=== PATIENT | male | born 2000 | race American Indian/Alaskan Native ===

== ENCOUNTER 2021-11-18 02:17 | Emergency (ER) | payer SELFPAY | END 2021-11-18 04:50 | disposition left against medical advice (07) | LOC: ED 02:17 | DX: R42 Dizziness and giddiness (principal); Z53.21 Procedure and treatment not carried out due to patient leaving prior to being seen by health care provider ==

== ENCOUNTER 2022-02-07 11:06 | Emergency (ER) | payer OTHER ==
[2022-02-07 11:19] VITALS: BP 130/90
[2022-02-07] MEDS ORDERED: MECLIZINE 25 MG TAB PO ONE (13:23)
--- NOTE | 2022-02-07 14:57 | Emergency Department Report ---
ED General Adult HPI - General Chief complaint: Medical Clearance Stated complaint: DIZZY/MED REFILL PUI?: No Time Seen by Provider: 02/07/22 13:15 Source: patient, EMS Mode of arrival: Stretcher Limitations: No Limitations - History of Present Illness Initial comments: 21 YO COMES TO ER WITH A/C VERTIGO HE HAS BEEN SEEN AT [facility] AND GIVEN MECLIZINE HE IS OUT OF HIS MEDS AND COMES FOR REFILL NO SYMPTOMS AT THIS TIME HE CANT GET INTO SEE PCP UNTIL SEPT HR DOCUMENTED AT 120 BUT 80 ON PROVIDER EXAM -: Gradual, month(s) Severity scale (0 -10): 0 Associated Symptoms: denies other symptoms Treatments Prior to Arrival: none - Related Data Previous Rx's Medication Instructions Recorded Last Taken Type Meclizine [Antivert] 25 mg PO TID PRN #30 02/07/22 Unknown Rx Allergies Allergy/AdvReac Type Severity Reaction Status Date / Time No Known Allergies Allergy Unverified 02/07/22 11:24 ED Review of Systems ROS: Stated complaint: DIZZY/MED REFILL Other details as noted in HPI Comment: All other systems reviewed and negative ED Past Medical Hx - Past Medical History Previous Medical History?: Yes Additional medical history: VERTIGO - Surgical History Past Surgical History?: No - Family History Family history: no significant - Social History Smoking Status: Never Smoker Substance Use Type: None - Medications Home Medications: Home Medications Medication Instructions Recorded Confirmed Last Taken Type Meclizine [Antivert] 25 mg PO TID PRN #30 02/07/22 Unknown Rx ED Physical Exam - General Limitations: No Limitations General appearance: alert, in no apparent distress - Head Head exam: Present: atraumatic, normocephalic - Eye Eye exam: Present: normal appearance - ENT ENT exam: Present: mucous membranes moist - Neck Neck exam: Present: normal inspection - Respiratory Respiratory exam: Present: normal lung sounds bilaterally. Absent: respiratory distress - Cardiovascular Cardiovascular Exam: Present: regular rate, normal rhythm. Absent: systolic murmur, diastolic murmur, rubs, gallop - GI/Abdominal GI/Abdominal exam: Present: soft, normal bowel sounds - Rectal Rectal exam: Present: deferred - Extremities Exam Extremities exam: Present: normal inspection - Back Exam Back exam: Present: normal inspection - Neurological Exam Neurological exam: Present: alert, oriented X3 - Psychiatric Psychiatric exam: Present: normal affect, normal mood - Skin Skin exam: Present: warm, dry, intact, normal color. Absent: rash ED Course Vital Signs 02/07/22 11:06 Temperature 97.1 F L Pulse Rate 124 H Respiratory 18 Rate Blood Pressure 130/90 [Left] O2 Sat by Pulse 100 Oximetry ED Medical Decision Making - Medical Decision Making HR 80 PT LEFT WO MEDS/EKG BECAUSE HE WAS WAITING TOO LONG. Vital Signs 02/07/22 11:06 Temperature 97.1 F L Pulse Rate 124 H Respiratory 18 Rate Blood Pressure 130/90 [Left] O2 Sat by Pulse 100 Oximetry DC WITH DC PLAN OF CARE INCLUDING DIET, MEDS, ACTIVITY AND FOLLOW UP. Critical care attestation.: If time is entered above; I have spent that time in minutes in the direct care of this critically ill patient, excluding procedure time. ED Disposition Clinical Impression: Vertigo Disposition: 01 HOME / SELF CARE / HOMELESS Is pt being admited?: No Does the pt Need Aspirin: No Condition: Stable Instructions: Dizziness, [id number] Additional Instructions: FOLLOW UP WITH PCP WE DISCUSSED Prescriptions: Meclizine [Antivert] 25 mg PO TID PRN #30 PRN Reason: Vertigo Referrals: SAM JACKSON MD [Staff Physician] - 3-5 Days Forms: Work/School Release Form(ED) Time of Disposition: 14:56
--- NOTE | 2022-02-10 13:23 | Electrocardiograph Report ---
[facility] Test Date: 2022-02-08 Test Time: 10:07:12 Pat Name: ALVIN WRIGHT Department: Room: Gender: M Special Education Teaching Assistant: AF : 2000 Requested By: SCAR GARCIA Order Number: [id number] Reading MD: Mo Seo Measurements Intervals [place] Rate: 71 P: 70 KS: 184 QRS: 78 QRSD: 151 T: -48 QT: 469 QTc: 509 Interpretive Statements Sinus rhythm Probable left atrial enlargement Right bundle branch block Abnrm T, consider ischemia, anterolateral lds No previous ECG available for comparison Electronically Signed On 02-10-2022 13:23:06 EDT by Mo Seo
== END 2022-02-08 09:49 | disposition home or self-care (01) ==
LOC: ED 11:06
DX: R42 Dizziness and giddiness (principal)
CPT/HCPCS: 93005; 99283

== ENCOUNTER 2022-03-05 16:25 | Emergency (ER) | payer OTHER ==
[2022-03-05 16:30] VITALS: BP 150/90
--- NOTE | 2022-03-05 17:23 | XRay Report ---
RIGHT ANKLE 3 VIEW(S) INDICATION / CLINICAL INFORMATION: pain, injury COMPARISON: None available. FINDINGS: BONES / JOINT(S): No acute fracture or subluxation. No significant arthritis. SOFT TISSUES: No significant abnormality. ADDITIONAL FINDINGS: None. IMPRESSION: 1. No acute findings. Signer Name: Mceca Luna MD Signed: 03/05/2022 5:19 PM Workstation Name: [employer] for iPhone and Android
[2022-03-05] MEDS ORDERED: HYDROcodone/ACETAMINOPHEN 5-325 MG TAB PO ONE (18:19)
[2022-03-05] MEDS ORDERED: IBUPROFEN 800 MG TAB PO ONE (18:19)
--- NOTE | 2022-03-05 18:25 | Emergency Department Report ---
ED General Adult HPI - General Chief complaint: Extremity Injury, Lower Stated complaint: RT ANKLE PAIN Time Seen by Provider: 03/05/22 17:47 Source: patient, EMS Mode of arrival: Wheelchair Limitations: No Limitations - History of Present Illness Initial comments: [age]-year-old male no significant past medical history reports to the ER with right ankle injury after falling on Sunday. Patient reports pain with ambulation and swelling. Patient reports no other acute signs or symptoms. Patient reports taking [id number] medication with no relief. Severity scale (0 -10): 8 - Related Data Previous Rx's Medication Instructions Recorded Last Taken Type Meclizine [Antivert] 25 mg PO TID PRN #30 02/07/22 Unknown Rx Acetaminophen/Codeine [Tylenol 1 tab PO Q6H PRN 2 Days #8 tab 03/05/22 Unknown Rx /Codeine # 3 tab] Ibuprofen [Motrin] 800 mg PO Q8HR PRN 6 Days #18 03/05/22 Unknown Rx tablet Allergies Allergy/AdvReac Type Severity Reaction Status Date / Time No Known Allergies Allergy Unverified 02/07/22 11:24 ED Review of Systems ROS: Stated complaint: RT ANKLE PAIN Other details as noted in HPI Comment: All other systems reviewed and negative Musculoskeletal: joint swelling (right ankle ) ED Past Medical Hx - Past Medical History Previous Medical History?: No Additional medical history: VERTIGO - Social History Smoking Status: Never Smoker Substance Use Type: None - Medications Home Medications: Home Medications Medication Instructions Recorded Confirmed Last Taken Type Meclizine [Antivert] 25 mg PO TID PRN #30 02/07/22 Unknown Rx Acetaminophen/Codeine [Tylenol 1 tab PO Q6H PRN 2 Days #8 tab 03/05/22 Unknown Rx /Codeine # 3 tab] Ibuprofen [Motrin] 800 mg PO Q8HR PRN 6 Days #18 03/05/22 Unknown Rx tablet ED Physical Exam - General Limitations: No Limitations General appearance: alert, in no apparent distress - Head Head exam: Present: atraumatic, normocephalic - Eye Eye exam: Present: normal appearance - ENT ENT exam: Present: mucous membranes moist - Neck Neck exam: Present: normal inspection - Respiratory Respiratory exam: Present: normal lung sounds bilaterally. Absent: respiratory distress - Cardiovascular Cardiovascular Exam: Present: regular rate, normal rhythm. Absent: systolic murmur, diastolic murmur, rubs, gallop - GI/Abdominal GI/Abdominal exam: Present: soft, normal bowel sounds - Rectal Rectal exam: Present: deferred - Extremities Exam Extremities exam: Present: normal inspection - Expanded Lower Extremity Exam Right Ankle exam: Present: tenderness, swelling. Absent: full ROM (due to pain ), deformity, dislocation - Back Exam Back exam: Present: normal inspection - Neurological Exam Neurological exam: Present: alert, oriented X3 - Psychiatric Psychiatric exam: Present: normal affect, normal mood - Skin Skin exam: Present: warm, dry, intact, normal color. Absent: rash ED Course Vital Signs 03/05/22 16:27 Temperature 98 F Pulse Rate 104 H Respiratory 18 Rate Blood Pressure 150/90 [Left] O2 Sat by Pulse 98 Oximetry ED Medical Decision Making - Radiology Data Radiology results: report reviewed, image reviewed [facility] [address] [place] [address] XRay Report Signed Patient: ALVIN WRIGHT III MR#: [id number] : 2000 Acct:[id number] Age/Sex: 21 / M ADM Date: 03/05/22 Loc: ED [address] [address] Dr: Ordering Physician: ED MD ANTONIO Date of Service: 03/05/22 Procedure(s): XR ankle 3+V RT Accession Number(s): [id number] cc: ED MD ANTONIO Fluoro Time In Minutes: RIGHT ANKLE 3 VIEW(S) INDICATION / CLINICAL INFORMATION: pain, injury COMPARISON: None available. FINDINGS: BONES / JOINT(S): No acute fracture or subluxation. No significant arthritis. SOFT TISSUES: No significant abnormality. ADDITIONAL FINDINGS: None. IMPRESSION: 1. No acute findings. Signer Name: Mecca Luna MD Signed: 03/05/2022 5:19 PM Workstation Name: [id number] Transcribed By: WP Dictated By: Bhupinder LUNA Electronically Authenticated By: Bhupinder LUNA Signed Date/Time: 03/05/221718 DD/ 18 TD/TT: - Medical Decision Making 21-year-old male right ankle pain after falling on Sunday. On physical exam patient has right ankle swelling with tenderness. No deformity no dislocation noted. X-ray reveals no dislocation no fracture no acute process noted. Patient received Madi wrap in ER as well as oral medication for pain. Patient discharged home with oral medication for pain control. Patient informed symptoms are to get worse to report back to the ER. Patient agrees with plan of care and verbalized understanding. Patient stable for discharge home. Vital Signs 03/05/22 16:27 Temperature 98 F Pulse Rate 104 H Respiratory 18 Rate Blood Pressure 150/90 [Left] O2 Sat by Pulse 98 Oximetry Critical care attestation.: If time is entered above; I have spent that time in minutes in the direct care of this critically ill patient, excluding procedure time. ED Disposition Clinical Impression: Right ankle sprain Qualifiers: Encounter type: initial encounter Involved ligament of ankle: other ligament Qualified Code(s): S93.491A - Sprain of other ligament of right ankle, initial encounter Disposition: HOME / SELF CARE / HOMELESS Is pt being admited?: No Condition: Stable Instructions: Ankle Sprain, [id number] Prescriptions: Ibuprofen [Motrin] 800 mg PO Q8HR PRN 6 Days #18 tablet PRN Reason: Pain , Severe (7-10) Acetaminophen/Codeine [Tylenol /Codeine # 3 tab] 1 tab PO Q6H PRN 2 Days #8 tab PRN Reason: Pain , Severe (7-10) Referrals: SAM JACKSON MD [Primary Care Provider] - 3-5 Days
== END 2022-03-05 18:38 | disposition home or self-care (01) ==
LOC: ED 16:25
DX: S93.401A Sprain of unspecified ligament of right ankle, initial encounter (principal); X58.XXXA Exposure to other specified factors, initial encounter; Y93.89 Activity, other specified; Y92.89 Other specified places as the place of occurrence of the external cause; Y99.8 Other external cause status
CPT/HCPCS: 99284